=== PATIENT | male | born 1965 | race Caucasian/White ===

== ENCOUNTER 2018-10-07 05:18 | Day surgery (SDC) | payer OTHER ==
[~2018-10-07] VITALS: Ht 165.1 cm; Wt 87.1 kg
--- NOTE | ~2018-10-07 | O ---
[facility] [place] [address] OPERATIVE REPORT Name: MANJINDERNEGRITA Room #: [facility].#: [id number] Admission: 10/07/18 Attend Phys: Milli Lees, Discharge: 10/07/18 Date of : 67 Report #: [id number] THIS REPORT FOR: //name// CC: Negrita Lees DATE OF SERVICE: 10/07/2018 PREOPERATIVE DIAGNOSES: 1. Left index finger laceration with probable extensor digitorum comminus transection zone 5. 2. Left index finger extensor indices proprius transection zone 5 tendon. POSTOPERATIVE DIAGNOSES: 1. Left index finger laceration with probable extensor digitorum communis transection zone 5. 2. Left index finger extensor indicis proprius transection zone 5 tendon. PROCEDURE PERFORMED: Left dorsal hand wound exploration with repair of zone 5 index extensor digitorum communis tendon and repair of zone 5 left extensor indicis proprius tendon. SURGEON: Milli Lees MD ANESTHESIA: General mask anesthesia. ESTIMATED BLOOD LOSS: Minimal. TOURNIQUET TIME: 22 minutes. COMPLICATIONS: None. CONDITION: Stable. DISPOSITION: Recovery room. INDICATIONS: The patient is a 53-year-old male with the above-mentioned diagnosis. He elects for operative treatment. The risks, benefits, alternatives and complications were discussed including but not limited to infection, damage to vessels or nerves, incomplete relief of his symptoms, tendon rupture. Informed consent was obtained. The correct extremity was identified and labeled by myself after verbal confirmation of the patient as well as visual confirmation and signed informed consent. DESCRIPTION OF PROCEDURE: The patient brought back to the operating room and placed on the operating table in supine position. He received preoperative [address] [address] OPERATIVE REPORT Name: NEGRITA DUNBAR Room #: [facility]..#: [id number] Admission: 10/07/18 Attend Phys: Milli Lees, Discharge: 10/07/18 Date of : 67 Report #: [id number] antibiotics. Tourniquet was placed over padding on the patient's left upper extremity. Left upper extremity was sterilely prepped and draped in the usual fashion. A timeout was taken to verify correct patient, operative procedure, operative site, all concurred. The arm was elevated, exsanguinated, tourniquet inflated. Next, the 5 cm wound was opened. The EIP and EDC tendons were identified and noted to be transected. The proximal stumps were difficult to locate and so the wound was extended for 3 cm proximally. Each stump was then identified. The EDC was repaired using a locked cruciate stitch with 3-0 Supramid suture. There was no tension noted at the repair site. There was no gapping with index finger flexion. The EIP was then repaired with a locked cruciate stitch using 3-0 Supramid suture as well. There was no gapping with tension and the repair looked to be appropriate. The wound was thoroughly irrigated. Skin was closed with 4-0 nylon suture. Wound was dressed with Adaptic and sterile gauze. He was placed in a bulky dressing and a volar slab splint with the wrist and fingers in full extension. All fingers were pink with brisk capillary refill at the conclusion of the case after deflation of tourniquet. All sponge and needle counts were correct. The patient was transferred to postoperative recovery room in stable condition. By: 1528 1628 Milli Lees MD /trupti
[~2018-10-07 05:18] MED LIST: AMLODIPINE BESY10 MG PO; CELEXA10 MG PO; CLARITIN10 MG PO; CRESTOR20 MG PO; KEFLEX500 M1 PO; LOTENSIN20 MG PO; OMEPRAZOLE 20 M20 M1 PO
[2018-10-07 12:00] VITALS: BP 133/71
--- NOTE | 2018-10-07 15:27 | EKG ---
[address] [address] ELECTROCARDIOGRAM REPORT Name: NEGRITA DUNBAR Room #: [facility]#: [id number] Admission: 10/07/18 Attend Phys: Milli Lees, Discharge: 10/07/18 Date of : 67 Report #: [id number] THIS REPORT FOR: //name// [facility] Test Date: 2018-10-07 Test Time: 11:51:39 Pat Name: NEGRITA DUNBAR Department: Room: 150 4 Gender: M Order Builder: SUZANNE : 1965 Requested By: Milli Lees Order Number: [id number] MD: Jaylon Guillen Measurements Intervals [place] Rate: 70 P: 29 AR: 155 QRS: 7 QRSD: 94 T: 48 QT: 423 QTc: 457 Interpretive Statements Sinus rhythm ST elev, probable normal early repol pattern Baseline wander in lead(s) V4 No previous ECG available for comparison Electronically Signed On 10-07-2018 15:26:51 FIELD SERVICE ENGINEER by Jaylon Guillen [email or web address] <ELECTRONICALLY SIGNED> By: Jaylon Guillen MD 10/07/18 1526 1151 1151 Jaylon Guillen MD /EPI
== END 2018-10-07 14:55 | disposition home or self-care (01) ==
LOC: TBA 05:18 → OR 05:18 → TBA 05:19 → OR 12:15
DX: S66.321A Laceration of extensor muscle, fascia and tendon of left index finger at wrist and hand level, initial encounter (principal); I10 Essential (primary) hypertension; E78.00 Pure hypercholesterolemia, unspecified; F41.9 Anxiety disorder, unspecified; K21.9 Gastro-esophageal reflux disease without esophagitis; Z98.890 Other specified postprocedural states; Z87.891 Personal history of nicotine dependence; Z87.442 Personal history of urinary calculi; Z79.899 Other long term (current) drug therapy; X58.XXXA Exposure to other specified factors, initial encounter; Y93.89 Activity, other specified; Y92.89 Other specified places as the place of occurrence of the external cause; Y99.8 Other external cause status
CPT/HCPCS: 50010; 50101; 50386; 50445; 51736; 56525; 56526; 57006; 57091; 62110; 62900; 70005